=== PATIENT | female | born 1955 | race Caucasian/White ===

== ENCOUNTER 2022-08-31 18:01 | Emergency (ER) | payer MEDICARE, SELFPAY ==
[2022-08-31 18:04] VITALS: BP 149/98; PULSE 81; RESP 16; TEMP 36.6; O2SAT 99
--- NOTE | 2022-08-31 18:41 | ED.GENADULT ---
HPI - General Adult General Chief complaint: Wound/Laceration Stated complaint: finger laceration Time Seen by Provider: 08/31/22 18:10 Source: patient Mode of arrival: ambulatory Limitations: no limitations History of Present Illness HPI narrative: This is a 67-year-old female who presents to the ED with chief complaint of left pinky finger laceration occurring just prior to arrival. Patient states that she was cutting with a mandolin and accidentally cut the tip of the finger. She reports avulsion of the nail. Reports her last tetanus was in 2020. Denies further site of pain or injury. Denies numbness or weakness. Exam Narrative: GENERAL: Well-appearing, well-nourished, and in no acute distress. HEAD: Normocephalic, atraumatic. EYES: PERRLA and EOMI. ENT: Nares clear, no rhinorrhea or epistaxis. Mucous membranes moist. Oropharynx without tonsillar hypertrophy exudate or other lesions. NECK: Supple. No adenopathy or masses. CHEST: No respiratory distress. Clear to auscultation. No wheezes rales or rhonchi HEART: Regular rate and rhythm. No murmur heard. Normal peripheral pulses. ABDOMEN: Soft, nontender, nondistended, normal active bowel sounds. MSK: Normal range of motion. No edema. SKIN: There is an avulsion injury to the nail of the left pinky finger. Bleeding is controlled. No gaping laceration. Warm, dry, no rash. Neurovascularly intact distally. Good cap refill. NEURO: Alert and oriented x3. No focal deficits. PSYCH: Normal mood and affect. Course Vital Signs Vital signs: Vital Signs Temperature 97.8 F 08/31/22 18:04 Pulse Rate 81 08/31/22 18:04 Respiratory Rate 16 08/31/22 18:04 Blood Pressure 149/98 H 08/31/22 18:04 Pulse Oximetry 99 08/31/22 18:04 Oxygen Delivery Room Air 08/31/22 18:04 Temperature 97.8 F 08/31/22 18:04 Pulse Rate 81 08/31/22 18:04 Respiratory Rate 16 08/31/22 18:04 Blood Pressure 149/98 H 08/31/22 18:04 Pulse Oximetry 99 08/31/22 18:04 Oxygen Delivery Room Air 08/31/22 18:04 Medical Decision Making MDM Narrative Medical decision making narrative: This is a 67-year-old female who presents to the ED with chief complaint of a left pinky avulsion injury occurring just prior to arrival. Vitals are normal. Exam shows a avulsion injury of the distal pinky dorsally. There is nail involvement however the distal end of the nail has been completely avulsed. There is a small soft tissue injury to the skin, however the nailbed is intact. Bleeding was controlled with direct pressure here in the department. There is no laceration or skin that needs to be approximated at this time. She was given pressure dressing for home. Instructions for dressing care at home given. Return precautions given. Supportive measures discussed. We discussed that there may be a little bit of cosmetic injury with the nail involvement and she is understandable. Patient is understanding and agreeable with plan for discharge and follow-up with PCP. Vital Signs Vital Signs: Vital Signs Temperature 97.8 F 08/31/22 18:04 Pulse Rate 81 08/31/22 18:04 Respiratory Rate 16 08/31/22 18:04 Blood Pressure 149/98 H 08/31/22 18:04 Pulse Oximetry 99 08/31/22 18:04 Oxygen Delivery Room Air 08/31/22 18:04 Temperature 97.8 F 08/31/22 18:04 Pulse Rate 81 08/31/22 18:04 Respiratory Rate 16 08/31/22 18:04 Blood Pressure 149/98 H 08/31/22 18:04 Pulse Oximetry 99 08/31/22 18:04 Oxygen Delivery Room Air 08/31/22 18:04 Discharge Plan Discharge Clinical Impression: Avulsion of skin Patient Disposition: Home, Self-Care Condition: Stable Instructions: Antibiotic Form Additional Instructions: Please do daily dressing changes. you can wash the hand but do not well submerge. Please watch out for any signs of infection like spreading redness, drainage, fevers. If you have any of these signs please return to the ER for further evalua
[2022-08-31 19:09] VITALS: BP 146/79; PULSE 66; TEMP 36.9; O2SAT 97
== END 2022-08-31 19:30 | disposition home or self-care (01) ==
PROVIDERS: Emergency Provider Physician Assistant; PCP Internal Medicine Infectious Disease
DX: S61.217A Laceration without foreign body of left little finger without damage to nail, initial encounter (principal); W26.8XXA Contact with other sharp object(s), not elsewhere classified, initial encounter
CPT/HCPCS: 99282

== ENCOUNTER 2022-09-16 23:37 | Emergency (ER) | payer MEDICARE, SELFPAY ==
[2022-09-16 23:50] VITALS: BP 157/94; PULSE 71; RESP 18; TEMP 36.2; O2SAT 99
--- NOTE | 2022-09-17 02:27 | ED.SKABFB ---
HPI - Skin/Abscess/Foreign Bdy General Chief complaint: Skin/Abscess/Foreign Body Stated complaint: insect bite? Time Seen by Provider: 09/17/22 01:46 Source: patient Mode of arrival: ambulatory Limitations: no limitations History of Present Illness HPI narrative: Patient is a 67 y/o female who presents to the ED with c/o redness and swelling to face. Patient reports she was outside watering her plants on Friday. She noticed an area of erythema, mild swelling, and tenderness to her L upper facial cheek, lateral from the eye on Friday. She states she noticed the area forming a white pustular head yesterday and tried to drain it, but denied any drainage. She is concerned for infection. Denies any fevers. Denies vision changes, pain with eye movements, eyelid swelling, nausea, vomiting. Related Data Allergies Allergy/AdvReac Type Severity Reaction Status Date / Time No Known Allergies Allergy Verified 09/17/22 02:43 Review of Systems Review of Systems: CONSTITUTIONAL: Denies fever, chills, or sweats. EYES: See HPI. GASTROINTESTINAL: Denies nausea, vomiting. SKIN: See HPI. NEUROLOGIC: Denies headache, numbness, or weakness. All systems reviewed & are unremarkable except as noted in HPI and below Exam Narrative: GENERAL: Well appearing, morbidly obese with BMI of 41.9, non-toxic, in no acute distress. HEAD: Normocephalic, atraumatic. EYES: PERRLA/EOMI, conjunctiva clear. No swelling or erythema of left sided eyelids. No pain with EOM. No chemosis, proptosis, ophthalmoplegia. Small area of focal erythema/minimal warmth/tenderness/swelling to far lateral periorbital region/upper facial cheek. Small area of induration. No palpable fluctuance. No pustular head. NECK: Supple. No adenopathy, no masses. RESPIRATORY: Airway patent, respirations nonlabored. CARDIOVASCULAR: Regular rate and rhythm without murmurs, rubs, or gallops. Radial pulses 2+ and equal bilaterally. MUSCULOSKELETAL: Moves all extremities. Strength/ROM intact without gross deformities. SKIN: Warm, dry, normal color. Psoriasis plaque changes to face/scalp line. NEURO: A&O X3. Speech clear. Cranial nerves II-XII grossly intact. Steady gait. No ataxic movements. PSYCHIATRIC: Appropriate mood and affect. Normal interaction. HENMT: Face images: 1. area of redness/swelling/TTP Course Vital Signs Vital signs: Vital Signs Temperature 97.2 F L 09/16/22 23:50 Pulse Rate 71 09/16/22 23:50 Respiratory Rate 18 09/16/22 23:50 Blood Pressure 157/94 H 09/16/22 23:50 Pulse Oximetry 99 09/16/22 23:50 Oxygen Delivery Room Air 09/16/22 23:50 Temperature 97.2 F L 09/16/22 23:50 Pulse Rate 71 09/16/22 23:50 Respiratory Rate 18 09/16/22 23:50 Blood Pressure 157/94 H 09/16/22 23:50 Pulse Oximetry 99 09/16/22 23:50 Oxygen Delivery Room Air 09/16/22 23:50 MDM - Skin/Abscess/Foreign Bdy MDM Narrative Medical decision making narrative: Patient presented to ED with concern for bug bite to left facial cheek. Exam consistent with cellulitis. No evidence for preseptal or orbital cellulitis. No systemic signs of infection. Vital stable. Afebrile. Will prescribe doxycycline. Recommended frequent warm compresses. Tylenol and ibuprofen for pain. Advised patient to have close follow-up with primary care doctor for further evaluation. Given strict return precautions. Discharged in stable condition. Medical Records Attestation: I reviewed the patient's medical records. Discharge Plan Discharge Clinical Impression: Cellulitis of face Patient Disposition: Home, Self-Care Condition: Stable Instructions: Antibiotic Form, Cellulitis (ED) Additional Instructions: Take antibiotics as prescribed. Recommend frequent warm compresses to face. Tylenol and ibuprofen as needed for pain. Follow-up with your primary care doctor for further evaluation. Return to the ED if you experience worsening or severe redness/swelling, lidia
[2022-09-17] MEDS: DOXYCYCLINE HYCLATE 100 MG TABLET PO (02:44)
== END 2022-09-17 03:03 | disposition home or self-care (01) ==
PROVIDERS: Emergency Provider Physician Assistant; PCP Internal Medicine Infectious Disease
DX: L03.211 Cellulitis of face (principal)
CPT/HCPCS: 99283; A9270